=== PATIENT | female | born 1950 | race Caucasian/White ===

== ENCOUNTER 2021-09-21 14:20 | Emergency (ER) | payer MEDICARE, MEDICAID ==
[~2021-09-21] VITALS: Ht 162.6 cm; Wt 61.4 kg
[~2021-09-21 14:20] MED LIST: PSEU1CAP PO
[2021-09-21 14:38] VITALS: BP 139/64
[2021-09-21] MEDS ORDERED: FLUT16SP2 BOTHNARES (15:22)
== END 2021-09-21 16:42 | disposition home or self-care (01) ==
LOC: ER 14:20
DX: J32.9 Chronic sinusitis, unspecified (principal); Z20.822 Contact with and (suspected) exposure to COVID-19; R09.81 Nasal congestion; R05.9 Cough, unspecified; R50.9 Fever, unspecified; I10 Essential (primary) hypertension; Z88.0 Allergy status to penicillin; Z79.899 Other long term (current) drug therapy
CPT/HCPCS: 87635; 99283; C9803

== ENCOUNTER 2022-07-01 16:43 | Emergency (ER) | payer MEDICARE, OTHER, MEDICAID ==
[~2022-07-01] VITALS: Ht 162.6 cm; Wt 61.0 kg
[~2022-07-01 16:43] MED LIST changes: +FLUT16SP2 BOTHNARES
[2022-07-01 16:47] VITALS: BP 159/81
[2022-07-01] MEDS ORDERED: HYDROcodone/acetaminophen 5mg/325mg tablet PO ONE (19:00)
[2022-07-01] MEDS ORDERED: TRAM50TA2 PO (19:40)
== END 2022-07-01 20:17 | disposition home or self-care (01) ==
LOC: ER 16:45
DX: G89.29 Other chronic pain (principal); M54.2 Cervicalgia; I10 Essential (primary) hypertension; Z88.0 Allergy status to penicillin
CPT/HCPCS: 36415; 84484; 93005; 99284

== ENCOUNTER 2024-03-16 10:32 | Emergency (ER) | payer MEDICARE, OTHER ==
[~2024-03-16] VITALS: Ht 167.6 cm; Wt 79.5 kg
[2024-03-16 15:03] VITALS: BP 144/85; PULSE 86; RESP 16; TEMP 98.7; O2SAT 97
[2024-03-16] MEDS ORDERED: GABA-535 PO (15:06)
== END 2024-03-16 15:05 | disposition home or self-care (01) ==
LOC: ER 10:32
DX: M54.31 Sciatica, right side (principal); I10 Essential (primary) hypertension; M79.661 Pain in right lower leg; Z88.0 Allergy status to penicillin; Z79.899 Other long term (current) drug therapy
CPT/HCPCS: 93971; 99284

== ENCOUNTER 2024-10-14 08:05 | Outpatient (CLI) | payer MEDICARE, OTHER ==
[~2024-10-14 08:05] MED LIST changes: +GABA-535 PO
== END 2024-10-14 23:59 | disposition home or self-care (01) ==
LOC: MRI02 08:05
PROVIDERS: ATTEND Family Medicine Sports Medicine
DX: M17.11 Unilateral primary osteoarthritis, right knee (principal); M25.561 Pain in right knee; M77.9 Enthesopathy, unspecified; M25.461 Effusion, right knee
CPT/HCPCS: 73721